=== PATIENT | male | born 1960 | race Caucasian/White ===

== ENCOUNTER 2019-10-08 14:58 | Emergency (ER) | payer BC ==
[2019-10-08 15:09] VITALS: BP 172/93
--- NOTE | 2019-10-08 15:11 | UC ---
Dizzy HPI HPI Summary: 59 yo with hx of hypertension, drank heavily last night reporting an intake of about 10 whiskey and seltzer. He vomited on awakening this morning, and has vomited about 4 or 5 times since then, including after eating a [employer] breakfast sandwich. He passed a small formed stool this morning, and last voided at about 11 am. He does not have abdominal pain. He has had minimal fluid intake. Head feels dull and achey without vision changes, feels lightheaded. No infectious contacts. He has had previous episodes of emesis following heavy drinking episodes. He reported jaw pain on arrival but later stated that this is not the case. EKG shows LBBB which is not new. - History Of Current Complaint Chief Complaint: UCDizziness Stated Complaint: DIZZINESS Time Seen by Provider: 10/08/19 15:01 Hx Obtained From: Patient Onset/Duration: Sudden Onset, Lasting Hours Timing: Minutes Severity Initially: Moderate Severity Currently: Moderate Pain Intensity: 0 Character: Lightheaded Aggravating Factor(s): Headache Alleviating Factor(s): Nothing Associated Signs And Symptoms: Positive: Nausea, Vomiting, Decreased Oral Intake - Risk Factors Cardiac Risk Factors: Hypertension CVA Risk Factor: Hypertension - Allergies/Home Medications Allergies/Adverse Reactions: Allergies Allergy/AdvReac Type Severity Reaction Status Date / Time MED FOR HEADACHE IN ED Allergy Severe PANIC Uncoded 10/08/19 15:10 ATTACK Home Medications: Home Medications Omeprazole CAP (NF) [Prilosec CAP* 20 MG] 20 mg PO DAILY 10/08/19 [History Confirmed 10/08/19] PMH/Surg Hx/FS Hx/Imm Hx Cardiovascular History: Hypertension Psychological History: Depression - takes an antidepressant via mail order. - Surgical History Surgical History: Yes Surgery Procedure, Year, and Place: HERNIA A BABY. GALL BLADDER - Family History Known Family History: Positive: Respiratory Disease - Social History Occupation: Employed Full-time Lives: With Family Alcohol Use: Weekly Alcohol Amount: 10 drinks/7hours Substance Use Type: Marijuana Substance Use Comment - Amount & Last Used: VERY OCCASIONALLY Smoking Status (MU): Former Smoker Type: Cigarettes When Did the Patient Quit Smoking/Using Tobacco: 20 YRS AGO Review of Systems All Other Systems Reviewed And Are Negative: Yes Constitutional: Positive: Fatigue Skin: Positive: Negative Eyes: Positive: Negative ENT: Positive: Negative Respiratory: Positive: Negative. Negative: Shortness Of Breath, Cough Cardiovascular: Negative: Palpitations, Chest Pain Gastrointestinal: Positive: Vomiting, Nausea. Negative: Abdominal Pain Physical Exam Triage Information Reviewed: Yes Appearance: Ill-Appearing - looks pale and unwell, Obese Vital Signs: Initial Vital Signs Temp 97.8 F 10/08/19 15:02 Pulse 81 10/08/19 15:02 Resp 14 10/08/19 15:02 BP 172/93 10/08/19 15:02 Pulse Ox 93 10/08/19 15:02 Eye Exam: Other - JAE, normal EOM Eyes: Positive: Conjunctiva Clear ENT: Positive: Pharynx normal Neck: Positive: Supple, Nontender Respiratory: Positive: Lungs clear, Normal breath sounds Cardiovascular: Positive: RRR, No Murmur Abdomen Description: Positive: Nontender, No Organomegaly, Distended. Negative : Guarding Musculoskeletal Exam: Normal Neurological: Positive: Alert, Muscle Tone Normal Psychological Exam: Normal Skin Exam: Normal Re-Evaluation - Re-Evaluation First Eval Re-Evaluation Time: 16:40 Change: Improved - Nausea has resolved and he reports feeling hungry. Dizzy Course/Dx - Course Course Of Treatment: IV fluids and zofran given with improvement. Discussed alcohol intake--he tends to binge drink 1 day per week, occasionally stops for up to 4 weeks at a time, and his work is not affected. Nonetheless he agrees that decreasing intake is a good idea. - Differential Dx/Diagnosis Differential Diagnosis/HQI/PQRI: Medication Reaction, Other - gastritis, possibly related to alcohol intake. Provider Diagnosis: Gastritis Discharge ED - Sign-Out/Discharge Documenting (check all that apply): Patient Departure All imaging exams completed and their final reports reviewed: No Studies - Discharge Plan Condition: Stable Disposition: HOME Patient Education Materials: Gastritis (ED) Referrals: PERICO Walker [Medical Doctor] - [facility] [Outside] Additional Instructions: The vomiting could be related to alcohol intake, but it also could be viral. Advance diet slowly, from clear fluids to eating non-fatty, non-fried foods, such as soups, toast, cooked veg or fruit, pasta. Follow up if you have recurrent vomiting or increased abdominal pain. I have included the number for [facility] services should you choose to get involved. - Billing Disposition and Condition Condition: STABLE Disposition: Home
[2019-10-08] MEDS ORDERED: NS 0.9% 1000 ML** 1,000 ML IV ONE (15:24)
[2019-10-08] MEDS ORDERED: Ondansetron INJ* 2 MG/ML VIAL IV ONE (15:25)
== END 2019-10-08 17:00 | disposition home or self-care (01) ==
LOC: UCEAST 14:58
DX: K29.70 Gastritis, unspecified, without bleeding (principal); I10 Essential (primary) hypertension; R53.83 Other fatigue; Z88.9 Allergy status to unspecified drugs, medicaments and biological substances; Z87.891 Personal history of nicotine dependence
CPT/HCPCS: 96360; 96374; 99211; G0463; J2405